=== PATIENT | male | born 1975 | race Caucasian/White ===

== ENCOUNTER 2022-11-25 08:10 | Outpatient (CLI) | payer BC, SELFPAY | END 2022-11-25 08:11 | disposition home or self-care (01) | PROVIDERS: PCP Emergency Medicine; Referring Provider Emergency Medicine; Visit Provider Emergency Medicine | DX: Z00.00 Encounter for general adult medical examination without abnormal findings (principal); I10 Essential (primary) hypertension; M10.9 Gout, unspecified; E66.8 Other obesity; Z12.5 Encounter for screening for malignant neoplasm of prostate; Z80.42 Family history of malignant neoplasm of prostate; Z13.6 Encounter for screening for cardiovascular disorders | CPT/HCPCS: 80048; 80061 ==

== ENCOUNTER 2022-12-02 15:34 | Outpatient (CLI) | payer BC, SELFPAY | END 2022-12-02 15:35 | disposition home or self-care (01) | PROVIDERS: PCP Emergency Medicine; Visit Provider Emergency Medicine | DX: Z00.00 Encounter for general adult medical examination without abnormal findings (principal); R73.01 Impaired fasting glucose; I10 Essential (primary) hypertension; E66.01 Morbid (severe) obesity due to excess calories; Z12.5 Encounter for screening for malignant neoplasm of prostate; Z80.42 Family history of malignant neoplasm of prostate | CPT/HCPCS: 80076; 84153; 84443 ==

== ENCOUNTER 2024-03-05 10:06 | Outpatient (CLI) | payer OTHER, SELFPAY | END 2024-03-05 10:07 | disposition home or self-care (01) | LOC: LKVREF 10:07 | PROVIDERS: PCP Emergency Medicine; Visit Provider Family Medicine | DX: Z00.00 Encounter for general adult medical examination without abnormal findings (principal); I10 Essential (primary) hypertension | CPT/HCPCS: 80048 ==

== ENCOUNTER 2024-05-18 07:48 | Outpatient (CLI) | payer OTHER, SELFPAY ==
--- NOTE | 2024-05-18 08:15 | MR_ITS ---
[address] [address] Phone:?[phone] Fax:?[phone] Referring Physician Information: Robb De Souza M.D. [id number] [facility] [address] Phone:?[phone] Fax:?[phone] Patient:Stacia Mullen D.O.B:?1975 Sex:?Male Phone:?[phone] [facility] MRN:?[id number] Exam Date:?05/18/2024 EXAM: MRI EXAMINATION OF THE RIGHT KNEE CLINICAL INFORMATION: Right knee pain. No specific injury. No history of surgery to this area. Evaluate meniscal tear. TECHNICAL INFORMATION: Coronal PD, T2 and STIR. Sagittal PD and T2 fat saturation. Axial PD and T2 fat saturation images acquired. No prior studies for comparison. INTERPRETATION: Bones: Minimal marrow edema signal involves the periphery of the medial tibial plateau. No evidence for an occult fracture or AVN. No other abnormal bone marrow edema pattern is identified. Ligaments and tendons: The medial collateral ligament is intact, without acute sprain or tear. The iliotibial band, fibular collateral ligament, biceps femoris tendon and popliteus tendon all are intact. The anterior cruciate ligament is intact without acute sprain or tear. The posterior cruciate ligament is intact. Extensor Mechanism: The patellar and quadriceps tendons are intact. The medial and lateral retinacula are intact. Knee Joint: There is a small knee joint effusion. No discrete popliteal cyst. There is no discrete loose body seen within the joint. Medial Compartment: Series 8 images 20 through 22 as well as series 7 images 29 and 32 and series 11 image 20 demonstrates a high-grade, full-thickness appearance of a radial tear which involves the junction of body and posterior horn medial meniscus. Horizontal intrasubstance signal continues through the posterior horn appearing related to additional mucoid degeneration. No displaced flap fragment or parameniscal cyst. There is no focal chondral defect. No other significant changes of chondromalacia. Lateral Compartment: There is no evidence for discrete lateral meniscal tear. No displaced flap fragment or parameniscal cyst. Series 9 images 21 and 22 demonstrate a 3 mm focus of grade 3 appearing chondromalacia posterior medial to the mid surface of the lateral tibial plateau. No other significant changes of chondromalacia. Patellofemoral articulation: There is no focal chondral defect. No other significant chondromalacia. CONCLUSION:?The image quality is degraded secondary to patient body habitus. 1. There is a high-grade, full-thickness appearance of a radial tear involving the junction of body and posterior horn medial meniscus. Additional horizontal intrasubstance signal appearing related to mucoid degeneration continuing through the posterior horn. 2. Minimal reactive marrow edema signal involves the periphery of the medial tibial plateau. 3. No lateral meniscal tear. 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 4. The cruciate ligaments are intact. No other residua of a ligament injury involving the knee. 5. Small knee joint effusion. KES Electronically signed on 05/18/2024 10:42:00 AM by Sai Clark M.D.
== END 2024-05-18 07:49 | disposition home or self-care (01) ==
LOC: MRI 07:49
PROVIDERS: PCP Family Medicine; Visit Provider Orthopaedic Surgery
DX: M25.561 Pain in right knee (principal); S83.241A Other tear of medial meniscus, current injury, right knee, initial encounter; M94.261 Chondromalacia, right knee; M25.461 Effusion, right knee; S89.91XA Unspecified injury of right lower leg, initial encounter
CPT/HCPCS: 73721

== ENCOUNTER 2024-05-23 10:09 | Outpatient (CLI) | payer OTHER, SELFPAY | END 2024-05-23 10:10 | disposition home or self-care (01) | LOC: LKVREF 10:11 | PROVIDERS: PCP Family Medicine; Visit Provider Family Medicine | DX: Z01.818 Encounter for other preprocedural examination (principal); I10 Essential (primary) hypertension | CPT/HCPCS: 80048 ==

== ENCOUNTER 2024-05-25 06:44 | Day surgery (SDC) | payer OTHER, SELFPAY ==
[2024-05-25] VITALS (17 sets, daily range): BP systolic 132–167; BP diastolic 80–134; PULSE 71–767; RESP 14–16; TEMP 36–36.7; O2SAT 95–100; BMI 56.0
[2024-05-25] MEDS: LACTATED RINGERS 1000 ML 1,000 ML 100 ML IV ×2 (07:20→13:25)
[2024-05-25] MEDS: SODIUM CHLORIDE 0.9 % (FLUSH) 10 ML SYRINGE IVF (07:36)
--- NOTE | 2024-05-25 09:37 | P.ORPRC_ITS ---
Procedure Note Date of procedure: 05/25/24 Procedure: PREOPERATIVE DIAGNOSIS: 1. Right knee medial meniscus tear POSTOPERATIVE DIAGNOSIS: 1. Right knee medial meniscus tear PROCEDURE: 1. Right knee arthroscopic medial meniscus repair 2. 22-Modifier for increased difficulty and time for procedure secondary to patient's morbid obesity. SURGEON: Roland De Souza M.D. CLIENT ARCHITECT: Bina Pickens P.A.-C. An campus administrative assistant was critical for this case to aid in patient positioning, knee manipulation, instrument exchange, and wound closure. ANESTHESIA: Spinal EBL: 5 mL TOURNIQUET: 50 minutes at 300 mmHg COMPLICATIONS: None evident INDICATIONS: Tomi is a 48-year-old male who sustained an injury to his right knee. Radiographic imaging confirmed radial tear of the medial meniscus. Recommendation was subsequent made for surgical intervention consisting of arthroscopic meniscus repair versus partial meniscectomy. Prior to surgery risks and benefits were discussed with patient all questions were answered informed consent was obtained. FINDINGS: Complete radial tear at the junction of the posterior horn and body of the medial meniscus. 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 Normal appearing cartilage in the patellofemoral joint. ACL, PCL, and lateral meniscus were intact. No intra- articular loose bodies. DESCRIPTION OF PROCEDURE: After a thorough discussion of risks, benefits, and alternatives, the patient was brought to the operating room and placed upon the operating table. Spinal anesthesia was administered and patient was rotated in the supine position on the OR table. He was given 3 g IV Ancef preoperatively for prophylaxis. The right lower extremity was prepped and draped in the appropriate sterile fashion. A surgical time-out was performed confirming patient identity, surgical site, and procedure. Anteromedial anterolateral portal sites were injected with 0.25% Marcaine with epinephrine. Anterolateral portal was established. Anterior medial portal was established after localization with spinal needle. Diagnostic arthroscopy was performed with findings as noted above. During diagnostic arthroscopy, bleeding was making visualization difficult. Therefore the instruments were removed, leg was elevated exsanguinated Esmarch and tourniquet was inflated to 300 mmHg. Tourniquet remained inflated for 50 minutes before deflated. A radiofrequency ablator was also used to achieve hemostasis. Following the diagnostic arthroscopy, the meniscus was probed, and there was noted to be a complete radial tear at the junction of the posterior horn and body of the medial meniscus. The tear site was debrided with motorized shaver and meniscal rasp. A NovoStitch suture passing device was then used to pass 2-0 sutures in a [id number] mattress fashion. One set of sutures was placed in the red-red zone, and 1 set of sutures was placed into the red-white zone. After passing each set of sutures, sutures were tied, and remnant suture was cut and removed. During repair, intra-articular bleeding was again observed and tourniquet was subsequently deflated. Hemostasis was again achieved using the radiofrequency ablation device. After completion of repair, the meniscal tissue in the white-white zone at the tear site was debrided using arthroscopic biter and motorized shaver. The meniscus was then probed and confirmed to be stable. Next, microfracture of the intra-articular notch was performed to introduce bleeding and marrow elements into the joint for assistance in healing the meniscus. Arthroscopic instruments were then removed, excess fluid was drained, and closure performed with 3-0 Monocryl with Steri-Strips. Dressings were applied, the tourniquet deflated, and the patient was awoken from anesthesia and transferred to the PACU in stable condition. PLAN: 1. Discharge home day of surgery. 2. Ice, elevation, acetominophen and/or ibuprofen, and Gregory for pain as needed. 3. Nonweightbearing or toe-touch weight-bearing right lower extremity with brace locked in extension. Use crutches for assistance with ambulation. 4. Unlock brace for knee range of motion 0-90 degrees when nonweightbearing. 5. Quad sets/straight leg raise regularly 6. Physical therapy per the complex meniscus repair rehab protocol. 7. Follow up in orthopedic clinic in 1-2 weeks for a wound check. 8. Aspirin 81 mg b.i.d. for 4 weeks for DVT prophylaxis.
--- NOTE | 2024-05-25 09:37 | W.PM.H&PU ---
History & Physical Update History & Physical Update H&P Reviewed and patient assessed: No changes noted
[2024-05-25] MEDS: CEFAZOLIN 2 GM INJ IVP (10:20)
--- NOTE | 2024-05-25 12:56 | W.ANESCHARGE ---
Anesthesia Charges Start Date/Time Anesthesia Start Date: 05/25/24 Anesthesia Start Time: 09:57 Stop Date/Time Anesthesia Stop Date: 05/25/24 Anesthesia Stop Time: 12:53
[2024-05-25] MEDS: fentaNYL 100 MCG/2 ML inj 50 MCG IVP ×2 (13:02→13:13)
--- NOTE | 2024-05-25 13:18 | P.NB_ITS ---
Nerve Block Nerve Block Time Seen by Provider: 13:10 Date Seen: 05/25/24 Type of block requested by surgeon for post-operative analgesia: adductor canal Side: left Time out performed: Yes Verification of patient name: Yes Verification of date of : Yes Site marking: site marked Name of person performing procedure: manjinder henderson Continuous monitoring Was continuous monitoring of O2 sat, B/P, athletic monitor, recorded every 15 minutes?: Yes Procedure Checklist: sterile prep, needles and gloves Ultrasound guided. Images saved: Yes Medications given in 5ml increments after negative aspiration: Ropivicaine %: 0.5 mL: 30 Decadron (mg): 10 Precedex (mcg): 10 Patient tolerated procedure well: Yes Block Charges Block Charge (with Pro Fee): Femoral Nerve Use of Ultrasound Machine for Block: Yes- US Guidance/pain block
--- NOTE | 2024-05-25 13:26 | SUR.PHASEI ---
Patient came to PACU crying out in pain. Stated pain level was 10 out of 10 in his right knee. Fentanyl given for pain control.
--- NOTE | 2024-05-25 13:27 | SUR.PHASEI ---
Second dose of Fentanyl given, anesthesia consulted for pain relief. Block anesthesia given by STATISTICS MANAGER to right knee.
--- NOTE | 2024-05-25 13:33 | SUR.PHASEI ---
Patient having ice chips, oxygen removed, pain is still zero, has some back discomfort. Oxygen saturation at 100%.
[2024-05-25] MEDS: HYDROmorphone 0.5 mg/0.5 ml inj IVP (13:38)
--- NOTE | 2024-05-25 13:43 | SUR.PHASEI ---
Patient experiencing less back pain after medication. Awake and talking, calm. Patient helped to sit more upright in the bed. Patient meets discharge criteria from PACU.
--- NOTE | 2024-05-25 13:58 | W.ANESCHARGE ---
Anesthesia Charges Start Date/Time Anesthesia Start Date: 05/25/24 Anesthesia Start Time: 09:57 Stop Date/Time Anesthesia Stop Date: 05/25/24 Anesthesia Stop Time: 12:53
[2024-05-25] MEDS: HYDROCODONE-ACETAMIN 5-325 MG 1 TAB PO (14:20)
== END 2024-05-25 15:06 | disposition home or self-care (01) ==
PROVIDERS: PCP Family Medicine; Visit Provider Orthopaedic Surgery
PROC: (CPT 29870; principal; 2024-05-25 09:30)
DX: S83.241A Other tear of medial meniscus, current injury, right knee, initial encounter (principal); E66.01 Morbid (severe) obesity due to excess calories; G89.18 Other acute postprocedural pain; Z68.43 Body mass index [BMI] 50.0-59.9, adult
CPT/HCPCS: 29882; 01400; 64447; 76942; A9270; J0690; J1100; J1171; J2250; J2704; J2795; J3010; J3490; J7120; L1833

== ENCOUNTER 2024-05-27 15:29 | Emergency (ER) | payer OTHER, SELFPAY ==
[2024-05-27] VITALS (28 sets, daily range): BP systolic 140–159; BP diastolic 73–90; PULSE 68–81; RESP 18–20; TEMP 37.1; O2SAT 95–99; BMI 54.8
--- NOTE | 2024-05-27 16:06 | ED.GENADULT ---
HPI - General Adult General Date Seen: 05/27/24 Chief complaint: Back Injury/Pain Stated complaint: Post op back pain Time Seen by Provider: 05/27/24 16:05 History of Present Illness HPI narrative: 48-year-old male with a past medical history of elevated BMI, chronic neck pain, back pain, hypertension, prediabetes. He underwent surgical repair of the meniscus of his right knee by Dr. De Souza, orthopedics here in [place], 3 days ago on Tuesday. He did have some form of spinal anesthesia. Awoke from his surgery with severe back pain and spasms. He was having pretty severe pain in the surgery suite after his surgery and required a couple of hours of treatment to get his pain under control before discharge. He says since then he has been having pretty severe pains throughout his back essentially from the lower 2/3 of his thoracic back all the way down to the lumbar spine and the top of the pelvis. The pain is midline in both sides. It does not radiate down his legs. He had been giving a prescription for [place] that he has been using for his postop pain. It is only temporarily and mowing moderately effective for his back pain. Because of worsening pain they called the ortho clinic today and talk to the on-call PA. He was given a prescription for Robaxin this morning. He was told to be careful mixing that with the [place] due to sedation side effects. He took some [place] this morning and then some Robaxin at about 11. The Robaxin is not helping. Because of his severe pain he came back to the ER today. He notes that he and his have not been able to sleep the past 2 nights because of the amount of back pain he is having. There their wits end and they do not know what to do. He is having severe pain affecting the entire back essentially from the bottoms of the scapula all the way down to the top of the pelvis on the sides. It does not radiate to the flanks or through the abdomen. Does not radiate down his legs. He does not have any fever. Urination has been normal. No pain or numbness radiating down his legs. No weakness in his legs. No anterior abdominal pain. His knee surgeries actually healing well and really not very painful at all. He has been wearing his knee brace. He has a history of occasional back pains and needs to see or cry retractor perhaps 5 times per year but has never had any back surgeries. He does not take any chronic pain meds for his back. He was not really having any flare of back pain recently. In review of his medical records I see that he had a left adductor canal nerve block for postoperative analgesia performed on Tuesday. reports that he had an epidural. She notes that there has been some bruising at the epidural site and there appears to be 2 puncture sites and she think they may have had trouble Doing the procedure. According to the orthopedic surgery note he had spinal anesthesia. I tried to look for anesthesia notes. There is mention of a left adductor canal block , but no epidural or spinal anesthesia ( His surgery was on the right leg). A contact the on-call [employer] by phone to discuss with her. She indicates that they would almost always do a spinal anesthesia (not an adductor canal block or a epidural) for any meniscus repair. She indicates that typically they chart on paper and that for the paper records would get scanned in by medical records the day after the case. Course this case occurred on Tuesday and perhaps the records and not been scanned as of yet. We do not have access to the anesthesia reports before they were scanned. Related Data Home Medications ?Medication ?Instructions ?Recorded ?Confirmed loratadine 10 mg tablet 10 mg PO QDAY 08/10/22 05/25/24 CBD cream topical PRN 12/02/22 05/23/24 famotidine [Pepcid] PO 05/07/24 05/23/24 Previous Rx's ?Medication ?Instructions ?Recorded lisinopril 10 mg tablet 10 mg PO QDAY #90 tabs 03/05/24 metformin 500 mg tablet,extended 1,000 mg (2 x 500 mg) PO QDAY #180 03/05/24 release 24 hr tabs acetaminophen 500 mg capsule 500 - 1,000 mg (1 - 2 x 500 mg) PO 05/25/24 Q6H PRN pain #60 caps aspirin 81 mg capsule 81 mg PO BID #60 caps 05/25/24 hydrocodone 5 mg-acetaminophen 325 1 tab PO Q4-6H PRN pain #20 tabs 05/25/24 mg tablet diazepam 5 mg tablet (Valium) 5 mg PO TID PRN muscle spasm #10 05/27/24 tabs hydromorphone 2 mg tablet 2 mg PO Q4H PRN pain #10 tabs 05/27/24 (Dilaudid) methocarbamol 750 mg tablet 750 - 1,500 mg (1 - 2 x 750 mg) PO 05/27/24 Q8H muscle spasm #12 tabs Allergies Allergy/AdvReac Type Severity Reaction Status Date / Time oxycodone AdvReac Mild Rash Verified 05/27/24 16:32 PFSH PFSH Medical History (Updated 05/27/24 @ 20:24 by Edward Segovia MD) Chronic depression (07/31/12) ?F32.A - Depression, unspecified (ICD-10) Chronic neck pain ?M54.2 - Cervicalgia (ICD-10) ?G89.29 - Other chronic pain (ICD-10) Gout (07/31/12) ?M10.9 - Gout, unspecified (ICD-10) Extreme obesity ?E66.8 - Other obesity (ICD-10) Tubular adenoma of colon ?D12.6 - Benign neoplasm of colon, unspecified (ICD-10) HTN (hypertension) ?I10 - Essential (primary) hypertension (ICD-10) Acute medial meniscus tear of right knee ?S83.241A - Other tear of medial meniscus, current injury, right knee, initial encounter (ICD-10) Pre-op examination ?Z01.818 - Encounter for other preprocedural examination (ICD-10) COVID-19 ?U07.1 - COVID-19 (ICD-10) Surgical History S/P carpal tunnel release ?Z98.890 - Other specified postprocedural states (ICD-10) History of repair of rotator cuff (07/14/12) ?Z98.890 - Other specified postprocedural states (ICD-10) Family History Mother Diabetes Stroke Father Diabetes Prostate cancer Maternal Grandfather Prostate cancer Social History Smoking Status: Never smoker How often do you have a drink containing alcohol: monthly or less How many standard drinks containing alcohol do you have on a typical day: 1 or 2 AUDIT-C Alcohol total score: 1 Non-prescribed substance use: denies use Caffeine: No Little interest or pleasure in doing things: not at all Feeling down, depressed, or hopeless: not at all Exam Narrative: Exam Narrative: Constitutional: Appears well-developed and well-nourished. Alert. Acutely uncomfortable, moaning and groaning due to pain HENT: Head: Atraumatic. Nose: Nose normal. Mouth/Throat: Oral mucosa is clear and moist. no trismus. Pharynx normal. Tonsils symmetric. No tonsillar enlargement, erythema, or exudate. Eyes: Conjunctivae normal. EOM normal. Pupils equal, round, and reactive to light. No scleral icterus. Neck: Normal range of motion. Neck supple. No tracheal deviation present. Cardiovascular: Normal rate, regular rhythm. No gallop. No friction rub. No murmur heard. Symmetric DP artery pulses Pulmonary/Chest: Effort normal. No stridor. No respiratory distress. No wheezes. No rales. No rhonchi . No tenderness. Abdominal: Soft. No distension. No mass. No tenderness. No rebound. No guarding. Musculoskeletal: Inspection of his back reveals a 2 cm area of ecchymosis in the midline in the upper 1/3 of the lumbar spine which I think corresponds to the puncture site from his spinal anesthesia from Tuesday. There is no overlying erythema. No palpable hematoma. He has diffuse tenderness of his back on the lower 1/3 of the thoracic spine all the way down to the entire lumbar spine down to the top of the pelvis including in the midline and the thoracic and lumbar paraspinous muscles. No warmth. No redness. No rash. No shingles. No midline step-off. No bony crepitus. RUE: Normal range of motion. No tenderness. No deformity LUE: Normal range of motion. No tenderness. No deformity Pelvis is stable. RLE: Follow-up brace and compression device on right leg. No edema. Did not take down dressings from his surgical site. He does not have any knee pain. LLE: Normal range of motion. No edema. No tenderness. No deformity Neurological: Alert and oriented to person, place, and time. Normal strength. CN II-VII intact. No sensory deficit. GCS eye subscore is 4. GCS verbal subscore is 5. GCS motor subscore is 6. Normal coordination Sensory: Normal light touch sensation bilaterally on the anteromedial thigh (L3), medial malleolus (L4), dorsal first web space (L5), lateral malleolus (S1). Strength: 5/5 strength hip flexors (L3) on the right and left 5/5 strength in the quadriceps (L4) on the right and left 5/5 strength in the tibialis anterior 5/5 strength in the EHL (L5) on the right and left 5/5 strength in the gastrocnemius (S1) on the right and left 5/5 strength in the hamstring on the right and left Negative straight leg raise bilaterally. He is able to stand and pivot room. Moves both legs normally. No weakness. No footdrop. Skin: Skin is warm and dry. No rash noted. No pallor. Normal capillary refill. Psychiatric: Acutely uncomfortable, moaning due to pain. Also seems anxious. Const: Vital Signs, click to edit/add: Vital Signs - 24 hr 05/27/24 15:56 05/27/24 16:52 05/27/24 17:01 Temperature 98.8 F Pulse Rate Pulse Rate [Pulse Oximeter] 77 81 Respiratory Rate 18 20 Blood Pressure Blood Pressure [Ri ght Upper Arm] 148/89 H 143/78 H Pulse Oximetry 99 96 95 Oxygen Delivery Me thod Room Air Room Air 05/27/24 17:10 05/27/24 17:37 05/27/24 17:39 Temperature Pulse Rate Pulse Rate [Pulse Oximeter] Respiratory Rate Blood Pressure Blood Pressure [Ri ght Upper Arm] Pulse Oximetry 97 97 96 Oxygen Delivery Me thod 05/27/24 17:40 05/27/24 17:45 05/27/24 17:50 Temperature Pulse Rate 72 Pulse Rate [Pulse Oximeter] Respiratory Rate Blood Pressure Blood Pressure [Ri ght Upper Arm] Pulse Oximetry 96 97 96 Oxygen Delivery Me thod 05/27/24 18:00 05/27/24 18:01 05/27/24 18:15 Temperature Pulse Rate 70 Pulse Rate [Pulse Oximeter] Respiratory Rate Blood Pressure Blood Pressure [Ri ght Upper Arm] Pulse Oximetry 97 97 95 Oxygen Delivery Me thod 05/27/24 18:30 05/27/24 19:05 05/27/24 19:08 Temperature Pulse Rate 72 70 69 Pulse Rate [Pulse Oximeter] Respiratory Rate Blood Pressure 159/84 H Blood Pressure [Ri ght Upper Arm] Pulse Oximetry 98 99 98 Oxygen Delivery Me thod 05/27/24 19:09 05/27/24 19:15 05/27/24 19:30 Temperature Pulse Rate 68 75 70 Pulse Rate [Pulse Oximeter] Respiratory Rate Blood Pressure Blood Pressure [Ri ght Upper Arm] Pulse Oximetry 99 99 99 Oxygen Delivery Me thod 05/27/24 19:45 05/27/24 19:49 05/27/24 20:00 Temperature Pulse Rate 71 74 74 Pulse Rate [Pulse Oximeter] Respiratory Rate Blood Pressure 140/73 H Blood Pressure [Ri ght Upper Arm] Pulse Oximetry 98 99 99 Oxygen Delivery Me thod 05/27/24 20:01 05/27/24 20:15 05/27/24 20:30 Temperature Pulse Rate 74 76 70 Pulse Rate [Pulse Oximeter] Respiratory Rate Blood Pressure 140/79 H Blood Pressure [Ri ght Upper Arm] Pulse Oximetry 99 97 99 Oxygen Delivery Me thod 05/27/24 20:38 Temperature Pulse Rate Pulse Rate [Pulse Oximeter] Respiratory Rate 20 Blood Pressure Blood Pressure [Ri ght Upper Arm] Pulse Oximetry Oxygen Delivery Me thod Course Course ED Course: Recheck-much more comfortable after IV Dilaudid and Valium. Discussed with radiology through [facility] to discuss possible options for imaging. At this point, it is unclear if he is just having back spasming because of the positioning of his back during the knee procedure or if there could be a potential complication from the spinal anesthetic. In discussion with Radiology, MRI would be the ideal test of choice. However MRI is not available here in the hospital at [place] the weekend. CT scan lumbar spine with IV contrast would be a reasonable alternative. It would have a pretty good sensitivity for epidural abscess or epidural hematoma, if present. Recheck-of the CT scan lumbar spine shows no obvious L-spine abnormalities. No evidence for any bony lesion, no inflammatory change around the spinal canal, no evidence for spinal epidural hematoma or spinal epidural abscess. CT scan lumbar spine does show a incidental finding of a lesion adjacent to the patient's spleen. Discussed this lesion with the reading radiologist. Differential would include splenule, splenic artery aneurysm, or other. Most likely would be splenule, which is benign. The in discussion with radiologist, follow-up could include outpatient ultrasound, or CT scan here in the ER today. Discussed with the patient and his and we agree that CT scan today is indicated. They do not want any uncertainty. Recheck-having recurrent pain. Suspect that is IV meds are starting to wear off. Oral meds ordered. Vital Signs Vital signs: Initial Vital Signs Temperature 98.8 F 05/27/24 15:56 Temperature Source Temporal Artery Scan 05/27/24 15:56 Pulse Rate 77 05/27/24 15:56 Respiratory Rate 18 05/27/24 15:56 Blood Pressure 148/89 H 05/27/24 15:56 Blood Pressure Mean 108 H 05/27/24 15:56 Pulse Oximetry 99 05/27/24 15:56 Oxygen Delivery Method Room Air 05/27/24 15:56 Vital Signs Temperature 98.8 F 05/27/24 15:56 Pulse Rate 77 05/27/24 15:56 Respiratory Rate 18 05/27/24 15:56 Blood Pressure 148/89 H 05/27/24 15:56 Pulse Oximetry 99 05/27/24 15:56 Oxygen Delivery Method Room Air 05/27/24 15:56 Temperature 98.8 F 05/27/24 15:56 Pulse Rate 70 05/27/24 20:30 Respiratory Rate 20 05/27/24 20:38 Blood Pressure 140/79 H 05/27/24 20:01 Pulse Oximetry 99 05/27/24 20:30 Oxygen Delivery Method Room Air 05/27/24 16:52 Medications Administered Medications: Discontinued Medications Generic Name Dose Route Start Last Admin Trade Name Freq PRN Reason Stop Dose Admin Diazepam 5 mg 05/27/24 16:24 05/27/24 16:42 Diazepam 5 Mg/Ml Inj IV 05/27/24 16:25 5 mg ONCE ONE Administration Diazepam 5 mg 05/27/24 18:21 05/27/24 18:52 Diazepam 5 Mg Tablet PO 05/27/24 18:22 5 mg ONCE ONE Administration Hydromorphone HCl 1 mg 05/27/24 16:24 05/27/24 16:42 Hydromorphone 0.5 Mg/0.5 Ml Inj IVP 05/27/24 16:25 1 mg ONCE ONE Administration Hydromorphone HCl 2 mg 05/27/24 18:21 05/27/24 18:52 Hydromorphone 2 Mg Tablet PO 05/27/24 18:22 2 mg ONCE ONE Administration Medical Decision Making MDM Narrative Medical decision making narrative: This patient presented with back pain. He did have onset of pain 2 days ago on Tuesday when he woke up from his right knee surgery. Broad differential considered. The patient did not sustain any trauma, therefore x-rays are not necessary due to the low likelihood of fracture or subluxation. The patient has not had a fever, saddle/perineal anesthesia, bilateral foot numbness, or bowel or bladder dysfunction. There is no clinical evidence of cauda equina syndrome, discitis, spinal/epidural space hematoma or epidural abscess. However since he did have a spinal anesthesia for his knee surgery, consider possible complication of the procedure. MRI would be optimal imaging to look for possible epidural abscess or hematoma, however is not available today. Discussed with Radiology. They would advise that we at least start with a CT lumbar spine with IV contrast which would be reasonably sensitive for those pathologies. CT scan is obtained and shows no evidence for any serious spine disorder. He he remains neurologically intact here in the ER. He is not febrile. The neurological exam is normal and the patient's symptoms seem consistent with a musculoskeletal issues and significant muscle spasm. Pain has improved with interventions in the emergency department. The patient will be discharged with pain medications to use as directed. Ice or heat to the back and stretching exercises. No heavy lifting, bending or twisting. Return if increasing pain, numbness, weakness, or bowel or bladder dysfunction. The patient was advised to schedule follow-up with their primary doctor within 2-3 days to re-assess symptoms. Return precautions reviewed and questions answered. Prescriptions for Dilaudid 2 mg every 4 hours as needed sent to his pharmacy at [facility]. Also prescription for Valium 5 mg Q 6 hours p.r.n. muscle spasm. These meds are not available to him overnight tonight. These meds are not available through [employer]. He is not able to tolerate oxycodone. He is not getting any pain relief from [place]. Therefore will need supplies of Dilaudid and Valium at home tonight to manage his symptoms (otherwise would need to be admitted for pain control). I was able to work with the warehouse operations associate. We were able to send him home with a supply of for 2 mg Dilaudid tablets that he can use overnight tonight and 2 5 mg Valium tablets that he can use overnight until the pharmacy opens the tomorrow morning. Imaging Data CT L spine with contrast: Attestation: I have reviewed the pertinent imaging results. Radiologist's impression: Impression: 1. No convincing radiographic evidence of acute osseous injury. 2. Mild scattered degenerative changes of the lumbar spine. 3. No evidence of pathologic enhancement. 4. Bilateral fusion of the sacroiliac joints. 5. Partially visualized 3.5 centimeter lesion abutting the anterior aspect of the spleen is indeterminate. CT scan - abdomen: Attestation: I have reviewed the pertinent imaging results. Radiologist's impression: Impression: Demonstration of previously seen lesion adjacent to the splenic hilum consistent with a splenule. Otherwise, no acute intra-abdominal abnormality is appreciated. Moderate hepatomegaly and hepatic steatosis. Discharge Plan Discharge Clinical Impression: Low back pain Patient Disposition: Home, Self-Care Condition: Stable Instructions: Acute Low Back Pain (ED) Additional Instructions: As we discussed, please come back to the ER right away if you have worsening or uncontrolled pain, fever, new numbness or weakness in your legs, or any problems. Follow-up with your doctor tomorrow for a recheck. To control your back pain, use the new prescriptions. Do not mix Dilaudid and Valium with your [place] and Robaxin because the combination of medications can cause excess drowsiness. Use the Dilaudid 2 mg every 4 hours as needed for pain. Be careful with Dilaudid because it is a strong pain killer and can cause dizziness, drowsiness, constipation, and can be addictive. Do not drive for 6 hours after taking Dilaudid. You can also use Valium for muscle relaxation 5 mg every 6 hours as needed for muscle spasms. Valium also can cause dizziness, drowsiness, and can be addictive. Prescriptions: New hydromorphone [Dilaudid] 2 mg tablet 2 mg PO Q4H PRN (Reason: pain) Qty: 10 0RF diazepam [Valium] 5 mg tablet 5 mg PO TID PRN (Reason: muscle spasm) Qty: 10 0RF No Action loratadine 10 mg tablet 10 mg PO QDAY lisinopril 10 mg tablet 10 mg PO QDAY Qty: 90 3RF metformin 500 mg tablet extended release 24 hr 1,000 mg PO QDAY Qty: 180 3RF CBD cream cream topical PRN Rx Instructions: patient uses on his back about once a week famotidine [Pepcid] PO acetaminophen 500 mg capsule 500 - 1,000 mg PO Q6H PRN (Reason: pain) Qty: 60 0RF hydrocodone-acetaminophen 5-325 mg tablet 1 tab PO Q4-6H PRN (Reason: pain) Qty: 20 0RF aspirin 81 mg capsule 81 mg PO BID Qty: 60 0RF methocarbamol 750 mg tablet 750 - 1,500 mg PO Q8H Qty: 12 0RF Rx Instructions: Caution taking this medication with hydrocodone. Follow Up/Referrals: Robb Heck MD [Primary Care Provider] - Stand Alone Forms: [employer] Info Instructions
--- NOTE | 2024-05-27 16:39 | CRLHL7_ITS ---
For Patients: As a result of the 21st Century Cures Act, medical imaging exams and procedure reports are released immediately into your electronic medical record. You may view this report before your referring provider. If you have questions, please contact your health care provider. Indication: Low back pain, 2 days status post neuro axial anesthesia. Technique: Multiaxial postcontrast CT of the lumbar spine with coronal and sagittal reformats are provided following administration of 150 cc Isovue 370 Comparison: No prior studies are available for comparison at this institution. Findings: The overall stature, alignment of the lumbar spine is within normal limits. Benign intraosseous hemangioma in the L2 vertebral body. Anterior osteophytic spurring at L1-2. Posterior endplate osteophytic spurring at T12-L1 and L2-3. No convincing evidence of suspicious bony fragments narrowing the central canal or neural foramina. Prevertebral and paraspinal soft are within normal limits. Partially visualized 3.5 centimeter lesion abutting the anterior aspect of the spleen is indeterminate (series 3, image 39). Small right interpolar renal cyst. The adrenal glands are unremarkable. Incidental bone island in the left L1 pars interarticularis. T11-12: No significant spinal canal stenosis. Mild facet arthrosis. Mild left neural foraminal narrowing. No right neural foramen narrowing. T12-L1: Posterior endplate osteophytic ridging. No significant spinal canal stenosis or neural foramen narrowing. L1-2: No significant spinal canal stenosis or neural foramen narrowing. L2-3: Posterior endplate osteophytic ridging. No significant spinal canal stenosis or neural foramen narrowing. L3-4: No significant spinal canal stenosis or neural foraminal narrowing. L4-5: Mild disc bulge. Moderate facet arthrosis. [id number] spinal canal stenosis. Mild neural foramen narrowing bilaterally. L5-S1: Mild disc bulge. Moderate facet arthrosis. Mild spinal canal narrowing. Mild right neural foramen narrowing. No left neural foraminal narrowing. Bilateral fusion of the sacroiliac joints. Impression: 1. No convincing radiographic evidence of acute osseous injury. 2. Mild scattered degenerative changes of the lumbar spine. 3. No evidence of pathologic enhancement. 4. Bilateral fusion of the sacroiliac joints. 5. Partially visualized 3.5 centimeter lesion abutting the anterior aspect of the spleen is indeterminate. Please note that all CT scans at this facility use dose modulation, iterative reconstruction, and/or weight-based dosing when appropriate to reduce radiation dose to as low as reasonably achievable. Dictated by Marcio Guan MD @ 05/27/2024 6:03:40 PM (Electronically Signed)
[2024-05-27] MEDS: diazePAM 5 MG/ML inj IV (16:42)
[2024-05-27] MEDS: HYDROmorphone 0.5 mg/0.5 ml inj 1 MG IVP (16:42)
--- NOTE | 2024-05-27 18:32 | CRLHL7_ITS ---
For Patients: As a result of the Century Cures Act, medical imaging exams and procedure reports are released immediately into your electronic medical record. You may view this report before your referring provider. If you have questions, please contact your health care provider. Indication: Low back pain, splenic lesion Technique: Volumetric multidetector CT images of the abdomen and pelvis were without the administration of intravenous contrast. Comparison: CT lumbar spine with contrast May 27, 2024 Findings: There is minimal basilar atelectasis and parenchymal scar. The liver is enlarged with moderate hepatomegaly and hepatic steatosis. The gallbladder is unremarkable without evidence of radiopaque calculus. There is no significant common biliary ductal dilatation or abrupt cut off. There is demonstration of a splenule seen just at the splenic hilum consistent with lesion on previously seen comparison exam. Otherwise the spleen is grossly unremarkable. The stomach and duodenum are grossly unremarkable. There is mild fatty atrophy of the pancreas. The adrenal glands are unremarkable. Excreted contrast is appreciated within the collecting systems without evidence of significant obstructive uropathy. Moderate stool seen throughout the colon with minimal colonic diverticulosis without definite evidence of diverticulitis. The appendix is unremarkable. There is no significant mesenteric, retroperitoneal, or pelvic sidewall lymph nodes. The aorta is nonaneurysmal. There is no significant atherosclerotic disease appreciated. Excreted contrast is seen within the bladder lumen. There is no free fluid or free air. There is mild diastasis of the rectus musculature. The lumbar vertebral body heights are grossly maintained in satisfactory alignment without evidence of displaced fracture, lytic or blastic lesion. Impression: Demonstration of previously seen lesion adjacent to the splenic hilum consistent with a splenule. Otherwise, no acute intra-abdominal abnormality is appreciated. Moderate hepatomegaly and hepatic steatosis. Please note that all CT scans at this facility use dose modulation, iterative reconstruction, and/or weight-based dosing when appropriate to reduce radiation dose to as low as reasonably achievable. Dictated by Kevin Lama MD @ 05/27/2024 7:29:54 PM (Electronically Signed)
[2024-05-27] MEDS: diazePAM 5 MG TABLET PO (18:52)
[2024-05-27] MEDS: HYDROmorphone 2 MG TABLET PO (18:52)
--- NOTE | 2024-05-27 21:09 | ED.NURSE ---
Pt received hand written prescription of Hydromorphone 2mg [id number]. and valium 5mg x2 pills Prescription done by MD Snider
== END 2024-05-27 21:00 | disposition home or self-care (01) ==
PROVIDERS: Emergency Provider Emergency Medicine; PCP Family Medicine
DX: M54.50 Low back pain, unspecified (principal)
CPT/HCPCS: 72132; 74176; 96374; 96375; 99284; 99285; A9270; J1171; J3360; Q9967

== ENCOUNTER 2024-11-23 14:45 | Outpatient (RCR) | payer BC, OTHER, SELFPAY | END 2025-03-23 23:59 | disposition home or self-care (01) | PROVIDERS: PCP Family Medicine; Visit Provider Family Medicine | DX: Z48.89 Encounter for other specified surgical aftercare (principal); M25.552 Pain in left hip; Z51.89 Encounter for other specified aftercare | CPT/HCPCS: 97110; 97140; 97162 ==

== ENCOUNTER 2024-12-10 13:37 | Outpatient (CLI) | payer BC, SELFPAY | END 2024-12-10 13:38 | disposition home or self-care (01) | LOC: LKVREF 13:39 | PROVIDERS: PCP Family Medicine; Visit Provider Family Medicine | DX: Z12.5 Encounter for screening for malignant neoplasm of prostate (principal) | CPT/HCPCS: G0103 ==